=== PATIENT | male | born 1955 | race Caucasian/White ===

== ENCOUNTER 2022-04-24 15:04 | Emergency (ER) | payer MEDICARE, BC ==
[~2022-04-24] VITALS: Ht 172.7 cm; Wt 115.9 kg
[2022-04-24 15:12] VITALS: BP 162/77
[2022-04-24] MEDS ORDERED: morphine 4 MG/ML inj SYRINge IM ONE (16:45)
[2022-04-24] MEDS ORDERED: ondansetron/PF 4mg/2ml inj IM ONE (16:45)
[2022-04-24] MEDS ORDERED: HYDR-3965 PO (17:05)
[2022-04-24] MEDS ORDERED: NAPR-56 PO (17:05)
== END 2022-04-24 18:06 | disposition home or self-care (01) ==
LOC: ER 15:05
DX: S52.022A Displaced fracture of olecranon process without intraarticular extension of left ulna, initial encounter for closed fracture (principal); V00.148A Other scooter (nonmotorized) accident, initial encounter; Y93.89 Activity, other specified; Y92.89 Other specified places as the place of occurrence of the external cause; Y99.8 Other external cause status
CPT/HCPCS: 29105; 73030; 73080; 96372; 99284; J2270; J2405; A6446; A6449